=== PATIENT | male | born 1985 | race Two or more races ===

== ENCOUNTER 2017-08-03 11:51 | Inpatient (IN) | payer MEDICAID ==
[~2017-08-03] VITALS: Ht 165.1 cm; Wt 89.4 kg
[2017-08-03] MEDS ORDERED: SODIUM CHLORIDE 0.9% 500 ML IVB ONE (11:56)
[2017-08-03] MEDS ORDERED: KETOROLAC TROMETH 30 MG/ML 1ML VIAL IV ONE (12:00)
[2017-08-03] MEDS ORDERED: ACETAMINOPHEN 325 MG TAB PO ONE (12:15)
[2017-08-03 12:24] LABS: Basophils # (auto) 0.1 uL; Basophils % (auto) 0.6 % (0.0-2.0); Eosinophils # (auto) 0.3 uL; Eosinophils % (auto) 1.9 % (0.0-7.0); Hemoglobin 16.1 g/dL (13.5-17.5); Lymphocytes # (auto) 1.6 uL; Mean Corpuscular Hemoglobin 29.1 pg (28.0-32.0); Mean Corpuscular Hgb Conc. 34.3 g/dL (32.0-36.0); Mean Corpuscular Volume 84.9 fL (80.0-100.0); Monocytes # (auto) 1.2 uL; Monocytes % (auto) 6.6 % (0.0-12.0); Neutrophils # (auto) 14.4 uL; Neutrophils % (auto) 81.9 % (37.0-80.0); Nucleated Red Blood Cells % 0.1 %; Platelet Count (auto) 160 10^3/uL (140-450); Red Blood Cells 5.54 10^6/uL (4.5-5.90); Red Cell Distribution Width 13.4 % (11.8-14.3); White Blood Cell 17.6 10^3/uL (4.4-10.8)
[2017-08-03 12:47] LABS: Albumin 4.5 g/dL (3.4-5.0); BUN/Creatinine Ratio 8.3; Bilirubin, Total 0.4 mg/dL (0.2-1.0); Calcium 9.1 mg/dL (8.5-10.1); Magnesium 2.1 mg/dL (1.6-2.6); Potassium 4.3 mmol/L (3.5-5.1); Total Protein 8.5 g/dL (6.4-8.2)
[2017-08-03] MEDS ORDERED: NITROGLYCERIN 0.4 MG SL TAB SL PRN (13:30)
[2017-08-03] MEDS ORDERED: traMADol HCL 50 MG TAB PO PRN (13:30)
[2017-08-03] MEDS ORDERED: LORazepam 0.5 MG TAB PO PRN (13:30)
[2017-08-03] MEDS ORDERED: PROMETHAZINE HCL 25 MG/ML 1ML IV PRN (13:30)
[2017-08-03] MEDS ORDERED: FAMOTIDINE (10MG/ML) 2ML VL IV SCH (13:30)
[2017-08-03] MEDS ORDERED: cefTRIAXone 1GM/10ml IVPUSH 10 ML IV ONE (13:30)
[2017-08-03] MEDS ORDERED: MORPHINE SULF INJ 2 MG/ML SYRINGE 1ML IV PRN ×2 (13:30)
[2017-08-03] MEDS ORDERED: TEMAZEPAM 15 MG CAP PO PRN (13:30)
[2017-08-03] MEDS ORDERED: ACETAMINOPHEN 500 MG TAB PO PRN (13:30)
[2017-08-03] MEDS ORDERED: GASTROGRAFIN 30 ML SOL ONE ×2 (13:56→14:40)
[2017-08-03] MEDS: SODIUM CHLORIDE 0.9% 1,000 ML IV SCH ×2 (14:24→21:36)
[2017-08-03] MEDS: metroNIDAZOLE 500MG/100ML 100 ML IV SCH ×2 (14:24→21:30)
[2017-08-03] MEDS ORDERED: IOHEXOL 300 MG/ML 75ml BOTTLE IJ ONE (14:40)
[2017-08-03 15:55] LABS: Urine Bacteria FEW /hpf (None Seen); Urine Blood Negative /uL (Negative); Urine Specific Gravity 1.006 (1.001-1.035); Urine WBC 1 /hpf (0 - 3)
[2017-08-03 17:37] VITALS: BP 132/72
[2017-08-03] MEDS: PANTOPRAZOLE 40 MG TAB PO SCH (21:36)
[2017-08-03 22:00] VITALS: BP 108/52
[2017-08-04] MEDS: metroNIDAZOLE 500MG/100ML 100 ML IV SCH ×4 (02:18→20:17)
[2017-08-04 05:10] VITALS: BP 105/66
[2017-08-04 06:43] LABS: Basophils # (auto) 0 uL; Basophils % (auto) 0.2 % (0.0-2.0); Eosinophils # (auto) 0.1 uL; Eosinophils % (auto) 1.1 % (0.0-7.0); Hematocrit 44.4 % (41.0-53.0); Hemoglobin 15.6 g/dL (13.5-17.5); Lymphocytes # (auto) 2.1 uL; Lymphocytes % (auto) 18.2 % (10.0-50.0); Mean Corpuscular Hemoglobin 30.2 pg (28.0-32.0); Mean Corpuscular Hgb Conc. 35.2 g/dL (32.0-36.0); Mean Corpuscular Volume 85.9 fL (80.0-100.0); Monocytes # (auto) 1.1 uL; Monocytes % (auto) 9.1 % (0.0-12.0); Neutrophils # (auto) 8.4 uL; Neutrophils % (auto) 71.4 % (37.0-80.0); Nucleated Red Blood Cells % 0.1 %; Platelet Count (auto) 140 10^3/uL (140-450); Red Blood Cells 5.16 10^6/uL (4.5-5.90); Red Cell Distribution Width 13.3 % (11.8-14.3); White Blood Cell 11.7 10^3/uL (4.4-10.8)
[2017-08-04 06:51] LABS: Albumin 3.4 g/dL (3.4-5.0); BUN/Creatinine Ratio 13.3; Bilirubin, Total 0.8 mg/dL (0.2-1.0); Calcium 8.1 mg/dL (8.5-10.1); Potassium 4.2 mmol/L (3.5-5.1); Total Protein 7.1 g/dL (6.4-8.2)
[2017-08-04 09:00] VITALS: BP 121/77
[2017-08-04] MEDS ORDERED: cefTRIAXone 1GM/10ml IVPUSH 10 ML IV SCH (09:00)
[2017-08-04] MEDS: SODIUM CHLORIDE 0.9% 1,000 ML IV SCH ×2 (09:14→14:16)
[2017-08-04] MEDS: ENOXAPARIN SOD 40 MG/0.4 ML SYRINGE SC SCH (09:41)
[2017-08-04] MEDS: PANTOPRAZOLE 40 MG TAB PO SCH ×2 (09:58→21:28)
[2017-08-04 13:00] VITALS: BP 129/79
[2017-08-04 17:00] VITALS: BP 113/76
[2017-08-04 22:00] VITALS: BP 129/80
[2017-08-05] MEDS: metroNIDAZOLE 500MG/100ML 100 ML IV SCH ×3 (02:13→13:28)
[2017-08-05] MEDS: SODIUM CHLORIDE 0.9% 1,000 ML IV SCH (03:58)
[2017-08-05 05:09] VITALS: BP 116/68
[2017-08-05 06:06] LABS: Basophils # (auto) 0 uL; Basophils % (auto) 0.2 % (0.0-2.0); Eosinophils # (auto) 0.3 uL; Eosinophils % (auto) 4.6 % (0.0-7.0); Hematocrit 44.2 % (41.0-53.0); Hemoglobin 15.3 g/dL (13.5-17.5); Lymphocytes # (auto) 1.7 uL; Lymphocytes % (auto) 24.6 % (10.0-50.0); Mean Corpuscular Hgb Conc. 34.5 g/dL (32.0-36.0); Mean Corpuscular Volume 86.8 fL (80.0-100.0); Monocytes # (auto) 0.6 uL; Monocytes % (auto) 8.9 % (0.0-12.0); Neutrophils # (auto) 4.4 uL; Neutrophils % (auto) 61.7 % (37.0-80.0); Nucleated Red Blood Cells % 0.2 %; Platelet Count (auto) 139 10^3/uL (140-450); Red Blood Cells 5.09 10^6/uL (4.5-5.90); Red Cell Distribution Width 13.6 % (11.8-14.3); White Blood Cell 7.1 10^3/uL (4.4-10.8)
[2017-08-05 06:28] LABS: BUN/Creatinine Ratio 19.3; Calcium 7.9 mg/dL (8.5-10.1); Potassium 4.1 mmol/L (3.5-5.1)
[2017-08-05 07:51] VITALS: BP 116/71
[2017-08-05] MEDS: ENOXAPARIN SOD 40 MG/0.4 ML SYRINGE SC SCH (10:00)
[2017-08-05] MEDS: PANTOPRAZOLE 40 MG TAB PO SCH (10:58)
[2017-08-05 12:21] VITALS: BP 112/64
[2017-08-05 13:29] VITALS: BP 112/64
== END 2017-08-05 13:50 | disposition home or self-care (01) | DRG 720 ==
LOC: EDBD 11:51 → ER 11:53 → TELE-EAST 11:54 → EAST 08-04 23:26
PROVIDERS: ADMIT Internal Medicine; ATTEND Internal Medicine
DX: A41.9 Sepsis, unspecified organism (principal); K85.90 Acute pancreatitis without necrosis or infection, unspecified; K76.0 Fatty (change of) liver, not elsewhere classified; A08.4 Viral intestinal infection, unspecified; F79 Unspecified intellectual disabilities; Q63.1 Lobulated, fused and horseshoe kidney; Z87.01 Personal history of pneumonia (recurrent); R16.0 Hepatomegaly, not elsewhere classified
CPT/HCPCS: 36415; 71045; 74176; 74177; 76775; 80048; 80053; 80061; 81001; 82150; 82270; 82378; 83605; 83690; 83735; 85025; 85652; 86141; 87040; 87086; 87493; 94761; 96361; 96374; 96375; J1885; J3490; Q9967